=== PATIENT | male | born 1970 | race Caucasian/White ===

== ENCOUNTER 2017-08-20 08:25 | Emergency (ER) | payer OTHER ==
[~2017-08-20] VITALS: Ht 172.7 cm; Wt 99.8 kg
--- NOTE | 2017-08-20 08:41 | NUR ---
Patient discharged to home in stable conditon. Written and verbal after care instructions given. Patient verbalizes understanding of instructions.
== END 2017-08-20 08:42 | disposition home or self-care (01) ==
LOC: ER 08:25
DX: S50.311A Abrasion of right elbow, initial encounter (principal); S80.211A Abrasion, right knee, initial encounter; V49.9XXA Car occupant (driver) (passenger) injured in unspecified traffic accident, initial encounter; Y93.89 Activity, other specified; Y92.410 Unspecified street and highway as the place of occurrence of the external cause; Y99.8 Other external cause status
CPT/HCPCS: A4663

== ENCOUNTER 2019-02-14 22:32 | Emergency (ER) | payer OTHER ==
[~2019-02-14] VITALS: Ht 182.9 cm; Wt 95.3 kg
[2019-02-14] MEDS: HYDROMORPHONE 1 MG/1 ML DISP.SYRIN IV ONE ×2 (00:05→23:46)
[2019-02-14] MEDS ORDERED: IV D5/ 0.9% NACL 1,000 ML IV ONE (23:18)
[2019-02-14] MEDS ORDERED: ONDANSETRON 4 MG/2 ML VIAL IV ONE (23:30)
[2019-02-14] MEDS ORDERED: DOXYCYCLINE HYCLATE IV 100 MG in IV DEXTROSE 5% 250 ML IV ONE (23:30)
[2019-02-14] MEDS ORDERED: ONDANSETRON 4 MG/2 ML VIAL ONE (23:43)
[2019-02-14] MEDS ORDERED: HYDROMORPHONE 2 MG/1 ML DISP.SYRIN ONE (23:43)
[2019-02-14 23:50] LABS: EOSINOPHILS % (AUTO) 0.1 % (0.0-7.0); MEAN CORPUSCULAR HEMOGLOBIN 30.9 uug (23.8-33.4); MONOCYTES # (AUTO) 0.2 K/uL (2.0-10.0)
[2019-02-14 23:54] LABS: BASOPHILS % (AUTO) 0.4 % (0.0-2.0); HEMATOCRIT 44.5 % (36.7-47.1); HEMOGLOBIN 15.5 g/dL (12.5-16.3); LYMPHOCYTES # (AUTO) 0.3 K/uL (20.0-40.0); LYMPHOCYTES % (AUTO) 4.9 % (20.5-51.5); MEAN CORPUSCULAR HGB CONC 35 g/dL (32.5-36.3); MEAN CORPUSCULAR VOLUME 88.9 fL (73.0-96.2); MONOCYTES % (AUTO) 3.9 % (0.0-11.0); NEUTROPHILS # (AUTO) 4.8 K/uL (1.8-8.9); NEUTROPHILS % (AUTO) 90.7 % (38.5-71.5); PLATELET COUNT (AUTO) 136 K/uL (152-348); RED BLOOD CELL COUNT(AUTO) 5.01 MIL/uL (4.06-5.63); WHITE BLOOD COUNT (AUTO) 5.3 K/uL (3.6-10.2)
[2019-02-14 23:57] LABS: *COLOR,URINE DARK YELLOW (YELLOW); *KETONES,URINE 4+ (NEGATIVE); LEUKOCYTE ESTERASE ,URINE NEGATIVE (NEGATIVE); NITRITE, URINE NEGATIVE (NEGATIVE); UGLUCOSE NEGATIVE (NEGATIVE)
[2019-02-15 00:06] LABS: POTASSIUM 3.8 mmol/L (3.5-5.1)
[2019-02-15 00:07] LABS: *BILIRUBIN,URIN 2+ (NEGATIVE); *BLOOD, URINE TRACE (NEGATIVE); *CLARITY,URINE HAZY (CLEAR)
[2019-02-15 00:12] LABS: BILIRUBIN,DIRECT 0.4 mg/dL (0.0-0.2); BILIRUBIN,TOTAL 2.2 mg/dL (0.2-1.0); TOTAL PROTEIN, SERUM 7.2 g/dL (6.4-8.2)
[2019-02-15] MEDS ORDERED: DOXYCYCLINE HYCLATE 100 MG TABLET PO ONE (00:15)
[2019-02-15 00:18] LABS: BACTERIA,URINE NONE SEEN /HPF (NONE SEEN); SQUAMOUS EPITHELIAL CELL,UR FEW /HPF (NONE SEEN); WBC,URINE 0-3 /HPF (0-3)
[2019-02-15 00:19] LABS: MUCUS,URINE MANY /LPF (0-FEW)
--- NOTE | 2019-02-15 00:30 | NUR ---
Patient states "I feel better no. My pain is 2/10." Patient with no distress noted
[2019-02-15] MEDS ORDERED: DOXYCYCLINE HYCLATE 100 MG TABLET ONE (00:41)
--- NOTE | 2019-02-15 00:50 | NUR ---
IV removed. Catheter intact and site benign. Pressure and 4x4 gauze applied to site. No bleeding noted.
--- NOTE | 2019-02-15 00:53 | NUR ---
Patient discharged to home in stable conditon. Written and verbal after care instructions given. Patient verbalizes understanding of instructions. Walked out of ER with no distress noted
[2019-02-15 00:54] VITALS: BP 145/85
== END 2019-02-15 00:55 | disposition home or self-care (01) ==
LOC: ER 22:32
DX: A79.9 Rickettsiosis, unspecified (principal)
CPT/HCPCS: 36415; 71045; 80048; 80076; 81000; 81001; 83605; 84484; 85025; 85730; 86403; 87040 ×2; 87400; 93005; 96374; 96375; 99284; J1170; J2405; J7042; 70030-TC; 87070; 87086; A4663

== ENCOUNTER 2021-12-21 09:11 | Emergency (ER) | payer OTHER ==
[~2021-12-21] VITALS: Ht 182.9 cm; Wt 113.4 kg
--- NOTE | 2021-12-21 09:25 | NUR ---
`PT IS IN ROOM #2A. DR DEY EVALUATED THE PT.
[2021-12-21] MEDS ORDERED: MORPHINE SULFATE 4 MG/1 ML DISP.SYRIN IM ONE (09:30)
[2021-12-21] MEDS ORDERED: CYCLOBENZAPRINE HCL 10 MG TABLET PO ONE (09:30)
[2021-12-21] MEDS ORDERED: KETOROLAC TROMETHAMINE 60 MG INJ IM ONE ×2 (09:30→09:35)
[2021-12-21] MEDS ORDERED: MORPHINE SULFATE 4 MG/1 ML DISP.SYRIN ONE (09:35)
[2021-12-21] MEDS ORDERED: CYCLOBENZAPRINE HCL 10 MG TABLET ONE (09:35)
[2021-12-21] MEDS ORDERED: NAPR500T6 PO (11:22)
[2021-12-21] MEDS ORDERED: HYDR-4209 PO (11:22)
[2021-12-21] MEDS ORDERED: CYCL10TA9 PO (11:22)
[2021-12-21] MEDS ORDERED: OXYC-128 PO (11:59)
--- NOTE | 2021-12-21 12:45 | NUR ---
PT WAS D/C'd TO HOME. D/C INSTRUCTIONS GIVEN TO THE PT BY DR DEY.
[2021-12-21 12:46] VITALS: BP 142/88
== END 2021-12-21 12:47 | disposition home or self-care (01) ==
LOC: ER 09:13
DX: M54.50 Low back pain, unspecified (principal); M47.816 Spondylosis without myelopathy or radiculopathy, lumbar region; M48.02 Spinal stenosis, cervical region
CPT/HCPCS: 72131; 96372 ×2; 99284; J1885; J2270; A4663